=== PATIENT | female | born 1980 | race Caucasian/White ===

== ENCOUNTER 2024-06-30 05:29 | Inpatient (IN) ==
--- NOTE | 2024-06-20 11:55 | Anesthesiology Consultation ---
Date of Service June 20, 2024 Assessment & Plan (1) Encounter for pre-operative examination: Chart Review Chart Review: Acceptable Risk for Surgery and Patient NOT seen in Pre Admission Testing Consults Requested none History Surgery Operation Date: 06/30/24 07:30 Proposed Procedures p Section (Delivery of Baby through Abdominal Incision) - Jamilah Jama MD, FACOG Height/Weight Height: 5 ft 6 in Weight: 81.647 kg Allergies Allergy/AdvReac Type Severity Reaction Status Date / Time No Known Allergies Allergy Verified 06/19/24 15:06 Medications Home Medications Medication Instructions Recorded Confirmed Last Taken ascorbic acid (vitamin C) 500 mg 500 mg PO DAILY 09/24/23 06/19/24 Unknown capsule [id number] 1 tab PO DAILY 12/13/23 06/19/24 Unknown [] calcium 600 mg capsule 600 mg PO DAILY 06/19/24 06/19/24 Unknown magnesium 200 mg tablet 200 mg PO DAILY 06/19/24 06/19/24 Unknown Past Medical History Medical History Herpes hx-not at present Past Family History Family History Mother Rheumatoid arthritis Denies family history of Ovarian cancer Prostate cancer Breast cancer Colorectal cancer Past Surgical History Surgical History History of dilatation and curettage History of adenoidectomy S/P tonsillectomy Social History Smoking Status: Never smoker Do You Dip or Chew Tobacco: No Hx Alcohol Use: No Hx Substance Use: No substance use type: does not use Testing Laboratory Results Laboratory Tests 12/13/23 04/11/24 10:58 10:50 WBC 7.29 Hgb 12.6 12.0 Hct 35.7 L 34.3 L Plt Count 201
--- NOTE | 2024-06-29 10:19 | History & Physical Report ---
Date of Service June 29, 2024 Assessment & Plan (1) 39 weeks gestation of : (2) resulting from in vitro fertilization: (3) Pelvic floor dysfunction: (4) Elevated ALT measurement: Plan Patient will be admitted on 06/30 for planned elective c/s due to her history of pelvic floor dysfunction. Having elevated ALT and so will recheck labs in AM. She is aware of risks/benefits and complications from c/s and desires to proceed and consent signed. rh pos, ri, gbs neg. no concern for hsv outbreak. History of Present Illness Chief Complaint: planned elective c/s Primary Care Provider: NO PCP 44yo at 39 0/7 wks ega for planned elective section. Denies rom, vb. +FM. No ctx. Has had some increased swelling especially in hands and isolated ALT elevation with normal BP parameters. PNC c/b 1. IVF/ICSI 2. AMA, neg cvs. normal echo 3. HSV history, offered but declined valtrex due to med se 4. Pelvic Floor Dysfunction, desires elective c/s PNL rh pos, ri, gbs neg OBH: G1 GYNH: nl paps Allergies Allergy/AdvReac Type Severity Reaction Status Date / Time No Known Allergies Allergy Verified 06/29/24 09:47 Home Medications Medication Instructions Recorded Confirmed Type ascorbic acid (vitamin C) 500 mg 500 mg PO DAILY 09/24/23 06/29/24 History capsule calcium 600 mg capsule 600 mg PO DAILY 06/19/24 06/29/24 History magnesium 200 mg tablet 200 mg PO DAILY 06/19/24 06/29/24 History vitamin-ferrous sulfate 1 tab PO DAILY 06/27/24 06/29/24 History 27 mg iron-folic acid 0.8 mg tablet Patient History Medical History Herpes hx-not at present Surgical History History of dilatation and curettage History of adenoidectomy S/P tonsillectomy Family History Mother Rheumatoid arthritis Denies family history of Ovarian cancer Prostate cancer Breast cancer Colorectal cancer Social History (Updated 01/29/24 @ 10:18 by BALTA Peck Smoking Status: Never smoker Second Hand Exposure: No; Do You Dip or Chew Tobacco: No; Hx Alcohol Use: No Hx Substance Use: No Preferred Language: Swedish Communication Ability: Effective Visual Impairment: No Limitations Order Builder Required: No Beliefs That Will Affect Care: None marital status: marital status details: pat 39 Current Living Situation: Spouse Current Living Situation Comment: Patient lives with spouse and 2 dogs. current occupational status: employed current occupation: Self employed Feels Safe at Home: Yes Assistive Devices: Contacts and Glasses Review of Systems as per Subjective / HPI Physical Exam Constitutional: WD/WN, vitals as above Respiratory: normal respiratory effort, lungs clear to auscultation Cardiovascular: Rate/Rhythm: regular rate and regular rhythm Gastrointestinal (Abdomen): soft gravid nt Musculoskeletal: tr edema nontender calves Neurologic: grossly normal Psychiatric: A+Ox3, euthymic affect Coding Level of Care Code None Diagnoses 39 weeks gestation of Z3A.39 resulting from in vitro fertilization O09.819 Pelvic floor dysfunction M62.89 Elevated ALT measurement R74.01
[2024-06-30] MEDS: LACTATED RINGER'S 1,000 ML IV SCH ×3 (06:05→12:14)
[2024-06-30 06:26] LABS: Basophils # (auto) 0.03 K/uL (0.00-0.20); Basophils % (auto) 0.5 %; Eosinophils # (auto) 0.08 K/uL (0.00-0.50); Eosinophils % (auto) 1.3 %; Hematocrit (blood only) 35.2 % (37.0-47.0); Hemoglobin 12.5 g/dl (12.0-16.0); Immature Granulocytes # (auto) 0.03 K/uL (0.01-0.20); Immature Granulocytes % (auto) 0.5 %; Lymphocytes # (auto) 1.92 K/uL (1.20-3.40); Lymphocytes % (auto) 31.8 %; Mean Corpuscular Hemoglobin 31.3 pg (25.0-34.0); Mean Corpuscular Hgb Conc 35.5 g/dL (32.0-36.0); Mean Platelet Volume 11.3 fL (9.4-12.4); Monocytes # (auto) 0.67 K/uL (0.11-0.59); Monocytes % (auto) 11.1 %; Neutrophils # (auto) 3.31 K/uL (1.40-6.50); Neutrophils % (auto) 54.8 %; Platelet Count 147 K/uL (130-400); RDW Coefficient of Variation 12.7 % (11.5-14.5); RDW Standard Deviation 40.5 fL (36.4-46.3); White Blood Count 6.04 K/ul (4.8-10.8)
[2024-06-30] MEDS: ACETAMINOPHEN 500 MG TAB PO SCH (06:31)
[2024-06-30] MEDS ORDERED: PHENYLEPHRINE 100MCG/ML 10ML SYR IV ONE (06:52)
[2024-06-30] MEDS ORDERED: ONDANSETRON INJ 2 MG/ML 2 ML VIAL ONE (06:52)
[2024-06-30] MEDS ORDERED: DEXAMETHASONE SOD INJ 4 MG/ML VIAL ONE (06:52)
[2024-06-30] MEDS ORDERED: fentaNYL citrate PF 100 MCG/2 ML VIAL ONE (06:52)
[2024-06-30] MEDS ORDERED: OXYTOCIN 10 UNITS/ML VIAL ONE (06:52)
[2024-06-30] MEDS ORDERED: KETOROLAC 30 MG/ML VIAL ONE (06:52)
[2024-06-30] MEDS ORDERED: MoRPHine SULFATE PF 1 MG/ML 10 ML AMP/VIAL ONE (06:53)
[2024-06-30] MEDS: CITRIC ACID/SODIUM CITRATE 15 ML UDC PO SCH (07:04)
[2024-06-30] MEDS: ceFAZolin 2000MG 2,000 MG/15 ML SYR IV SCH (07:10)
--- NOTE | 2024-06-30 07:23 | History & Physical Bridge Note ---
Date of Service June 30, 2024 History & Physical Bridge Note I have examined the patient, reviewed the History & Physical and in the interval since the performance of the History & Physical I have noted the following changes of clinical significance: no changes noted
[2024-06-30] MEDS ORDERED: NALOXONE HCL 0.08 MG in SYRINGE 1.8 ML IV PRN (07:45)
[2024-06-30] MEDS ORDERED: ePHEDrine sulfate 50 MG/ML AMP IV PRN (07:45)
[2024-06-30] MEDS ORDERED: NALOXONE HCL 1 MG in SODIUM CHLORIDE 0.9% 1,000 ML IV PRN (07:45)
[2024-06-30] MEDS ORDERED: LACTATED RINGER'S 500 ML IV PRN (07:45)
[2024-06-30] MEDS ORDERED: diphenhydrAMINE 50 MG/ML VIAL IV PRN (07:45)
[2024-06-30] MEDS ORDERED: NALOXONE HCL 0.4 MG/1 ML VIAL/CARP IV PRN (07:45)
[2024-06-30] MEDS ORDERED: HYDROmorphone INJ 0.5 MG/0.5 ML SYR IV PRN (07:45)
[2024-06-30] MEDS ORDERED: DC INTRASPINAL MORPHINE SCH (07:45)
[2024-06-30] MEDS ORDERED: NO NARCOTICS OR SEDATIVES SCH (07:45)
[2024-06-30] MEDS ORDERED: NALBUPHINE HCL 5 MG in SYRINGE 0 ML IV PRN (07:45)
[2024-06-30] MEDS ORDERED: KETOROLAC 30 MG/ML VIAL IV PRN (07:45)
--- NOTE | 2024-06-30 08:29 | Operative Report ---
Post Operative Report Pre & Post Diagnosis Operation Date: 06/30/24 07:30 Pre-Op Diagnosis: 1. Term , 39 wks 2. Desires elective primary c/section 3. Pelvic Floor Dysfunction 4. AMA 5. IVF Post-Op Diagnosis: Same I identified the patient and participated in the time-out.: Yes Procedure Operation Date: 06/30/24 07:30 Actual Procedures p Primary Low Transverse Section (Delivery of Baby through Abdominal Incision) with the of a live male child at 0757. - Jamilah Jama MD, FACOG Surgeon Jamilah Jama MD, FACOG Information Technology Administrator [employer] Quantitative Blood Loss (QBL) 241 Findings Consistent with Post-Op Diagnosis (viable male apgars 9,9, normal uterus, tubes and ovaries bilaterally. ) Fluids 1000cc Specimens cord blood Drains lane Anesthesia Type Spinal Complications none Disposition Accompanied Patient To Recovery: No Disposition: L&D Indications 44yo at 39 wks ega for planned elective c/s for history of pelvic floor dysfunction. Description of Procedure The patient was taken to the operating room and identified. After adequate anesthesia was obtained, she was placed in the supine position with a leftward tilt on the operating table and prepped and draped in the usual sterile fashion. A lane catheter had already been placed. The knife was used to create a Pfannensteil skin incision that was carried down to the underlying layer of fascia. The fascia was nicked in the midline and this opening was extended laterally using Valera scissors. Teresa clamps were placed on the superior and inferior aspect of the fascial incision tenting it upward and the underlying rectus muscles were dissected off the overlying fascia both sharply and bluntly using Valera scissors. The rectus muscles were bluntly in the midline. The peritoneal cavity was bluntly entered into. This opening was stretched. The bladder blade was placed. The vesicouterine peritoneum was elevated and opened up into and the bladder flap was created digitally and bladder blade was replaced. The knife was used to create a hysterotomy and this opening was stretched. The operators hand was placed through the hysterotomy and the bladder blade was removed. The head was elevated and flexed and with fundal pressure the head was delivered. The shoulders and body were rapidly delivered. The cord was clamped and cut and the 's mouth and nares were bulb suction. The infant was handed off to the awaiting pediatricians. Cord blood was obtained. The placenta was manually expressed. The uterus was exteriorized and cleared of all clots and debris. Dilute IV Pitocin was begun. The uterine tone was improving. The hysterotomy was closed in a running interlocking fashion using 0 Vicryl followed by a second imbricating layer of 0 Vicryl. The hysterotomy was hemostatic. The pelvis was suctioned. The uterus was returned to the abdomen and a bleeding site was noted at the midpoint of hysterotomy. A 2-0 vicryl figure of eight suture was placed for excellent hemostasis. The gutters were cleared of all clots and debris. The hysterotomy was reinspected and noted to be hemostatic. The fascia was then closed in running fashion using 0 Vicryl. The subcutaneous fat was copiously irrigated and reapproximated using 2-0 chromic. The skin was closed in a subcuticular fashion using 4-0 monocryl. At this point the procedure was terminated. The patient was transferred to the recovery room in stable condition. All sponge, lap and needle counts are correct x2. I attest to the content of the Intraoperative Record and any orders documented therein. Any exceptions are noted below. OB Procedure Charges 21235
--- NOTE | 2024-06-30 08:40 | Anesthesiology Progress Note ---
Date of Service June 30, 2024 Anesthesia Post Procedure Vital Signs Vital Signs: Temp Pulse Resp BP Pulse Ox 06/30/24 08:34 66 100 06/30/24 08:33 56 L 118/57 L 06/30/24 05:37 18 06/30/24 05:37 36.7 C 18 Transfer of Care Handoff Completed per policy Notes Mental Status: alert / awake / arousable and participated in evaluation Patient Amnestic to Procedure: No Nausea / Vomiting: adequately controlled Pain: adequately controlled Airway Patency, RR, SpO2: stable & adequate BP & HR: stable & adequate Hydration State: stable & adequate Neuraxial Anesthesia: was administered and sensory block is resolving Anesthetic Complications: no major complications apparent and Pt Satisfied with anesthetic care
[2024-06-30] MEDS ORDERED: HYDROCORTISONE ACETATE 25 MG SUPP PR PRN (09:36)
[2024-06-30] MEDS ORDERED: CALCIUM CARBONATE 500 MG CHEWABLE TAB PO PRN (09:36)
[2024-06-30] MEDS ORDERED: BENZOCAINE 20% SPRY 85 APPLN/85 GM CAN EXT PRN (09:36)
[2024-06-30] MEDS: OXYTOCIN 20 UNITS/LR 1,002 ML IV SCH (10:30)
[2024-06-30] MEDS ORDERED: Nursing to Pharmacy Communication SCH (10:45)
[2024-06-30] MEDS: DIPHTHER/TETAN/PERTUS Vaccine (Tdap, Adol/Adult) 0.5mL IM ONE (10:48)
[2024-06-30] MEDS: MAGNESIUM OXIDE 400 MG TAB PO SCH (12:12)
[2024-06-30] MEDS: ASCORBIC ACID 500 MG TAB PO SCH (12:12)
[2024-06-30] MEDS: CALCIUM CARBONATE 1250MG TAB PO SCH (12:12)
[2024-06-30] MEDS: MoRPHine SULFATE PF 1 MG/ML 10 ML AMP/VIAL INT SPINAL ONE (12:13)
[2024-06-30] MEDS: SODIUM CHLORIDE 0.9% 1,000 ML IV SCH (12:14)
[2024-06-30] MEDS: IBUPROFEN 600 MG TAB PO SCH (14:09)
[2024-06-30] MEDS: ACETAMINOPHEN 325 MG TAB PO SCH (14:09)
[2024-06-30] MEDS: SIMETHICONE 80 MG CHEW PO SCH (14:12)
[2024-06-30] MEDS: ONDANSETRON INJ 2 MG/ML 2 ML VIAL IV PRN (20:05)
[2024-06-30] MEDS: DOCUSATE SODIUM 100 MG CAP PO SCH (20:06)
[2024-06-30] MEDS: PROMETHAZINE 6.25 MG/50.25 ML BAG IV PRN (21:36)
[2024-07-01] MEDS ORDERED: oxyCODONE HCL IR 5 MG TAB (IMMEDIATE RELEASE) PO PRN (01:46)
[2024-07-01] MEDS ORDERED: HYDROmorphone INJ 0.5 MG/0.5 ML SYR IV PRN (01:46)
[2024-07-01] MEDS ORDERED: diphenhydrAMINE 50 MG/ML VIAL IV PRN (01:46)
[2024-07-01] MEDS ORDERED: ONDANSETRON INJ 2 MG/ML 2 ML VIAL IV PRN (01:46)
[2024-07-01] MEDS ORDERED: PROMETHAZINE 12.5 MG/50.5 ML BAG IV PRN (01:46)
[2024-07-01] MEDS ORDERED: diphenhydrAMINE Capsule 25 MG CAP PO PRN (01:46)
[2024-07-01 06:50] LABS: Basophils # (auto) 0.02 K/uL (0.00-0.20); Basophils % (auto) 0.2 %; Eosinophils # (auto) 0.09 K/uL (0.00-0.50); Eosinophils % (auto) 0.8 %; Hematocrit (blood only) 31.8 % (37.0-47.0); Hemoglobin 11.3 g/dl (12.0-16.0); Immature Granulocytes # (auto) 0.06 K/uL (0.01-0.20); Immature Granulocytes % (auto) 0.5 %; Lymphocytes # (auto) 2.25 K/uL (1.20-3.40); Lymphocytes % (auto) 19.1 %; Mean Corpuscular Hemoglobin 31.7 pg (25.0-34.0); Mean Corpuscular Hgb Conc 35.5 g/dL (32.0-36.0); Mean Corpuscular Volume 89.3 fL (80.0-100.0); Mean Platelet Volume 11.4 fL (9.4-12.4); Monocytes % (auto) 8.5 %; Neutrophils # (auto) 8.38 K/uL (1.40-6.50); Neutrophils % (auto) 70.9 %; Platelet Count 136 K/uL (130-400); RDW Coefficient of Variation 12.7 % (11.5-14.5); RDW Standard Deviation 41.6 fL (36.4-46.3); Red Blood Count 3.56 M/uL (4.20-5.40)
[2024-07-01 07:15] LABS: Albumin Level 3.1 gm/dl (3.4-5.0); Bilirubin Direct 0.1 mg/dl (0-0.2); Bilirubin,Total 0.5 mg/dl (0.2-1.0); Total Protein 5.4 gm/dl (6.0-8.3)
--- NOTE | 2024-07-01 07:22 | Obstetrical Progress Note ---
Date of Service July 01, 2024 Assessment & Plan (1) delivery delivered: -1st POD S/P for PFD/ AMA/ ISCI at term - Overall doing fine. Vitals stable. - Improved nausea, vomiting. - Bandage removed; Wound intact and healthy. - Continue observation today, will discharge her tomorrow. Subjective Patient is a 44 yo female is POD #1 following delivery at 39 weeks. She reports feeling well overall this morning. She reports her pain is well managed on analgesics; She has NV yestreday evening; doing fine now after medicine change. Voiding urine. Tolerating regular meals overnight and able to ambulate some. She has passed gas but no stool. Persistent lochia with some improvement this morning. Currently breast feeding. Review of Systems Denies fever, chills, sweats. Denies SOB, difficulty breathing, chest pain, palpitations, and chest pressure. Denies breast pain. Denies dysuria. Denies headache or changes in vision. Physical Exam General: Alert and oriented. No acute distress. CV: Regular rate and rhythm. No murmurs. Respiratory: CTA bilaterally. No rhonchi, wheezes, or crackles. No increased work of breathing. Abdomen: Positive bowel sounds. Soft, nontender, and nondistended. Uterus: Fundus firm and palpable few cm below umbilicus. Surgical scar clean and healing well. Lower extremities: No LE edema. No deep calf pain. Results & Data Vital Signs (Past 12 Hours) Vital Signs Temp Pulse Resp BP Pulse Ox O2 Del Method 07/01/24 02:40 36.9 C 61 16 104/61 97 Room Air 07/01/24 01:00 99 07/01/24 00:00 98 06/30/24 23:40 37.3 C 88 18 111/81 97 Room Air 06/30/24 23:00 100 06/30/24 22:33 98 06/30/24 21:00 99 06/30/24 20:15 36.6 C 66 20 110/71 98 Room Air 06/30/24 20:00 98 06/30/24 19:32 98
[2024-07-01] MEDS: PRENATAL VITAMIN 1 TAB PO SCH (08:06)
[2024-07-01] MEDS: FERROUS SULFATE 325 MG TAB PO SCH (08:06)
[2024-07-01] MEDS: SENNA 8.6 MG TAB PO PRN (11:06)
[2024-07-01] MEDS: MAGNESIUM HYDROXIDE SUSP 30 ML UDC PO PRN (11:06)
[2024-07-01] MEDS ORDERED: Nursing to Pharmacy Communication SCH (15:15)
[2024-07-01] MEDS ORDERED: bisacodyL 10 MG SUPP PR PRN (15:21)
[2024-07-01] MEDS: bisacodyL 10 MG SUPP PR PRN (15:25)
[2024-07-01] MEDS: bisacodyL 5 MG TABEC PO SCH (16:22)
[2024-07-01] MEDS ORDERED: bisacodyL 5 MG TABEC PO SCH (20:00)
[2024-07-02 06:28] LABS: Hematocrit (blood only) 32.9 % (37.0-47.0); Hemoglobin 11.6 g/dl (12.0-16.0)
[2024-07-02 06:45] LABS: Albumin Level 3.1 gm/dl (3.4-5.0); Bilirubin,Total 0.3 mg/dl (0.2-1.0); Total Protein 5.3 gm/dl (6.0-8.3)
--- NOTE | 2024-07-02 06:51 | Obstetrical Progress Note ---
Date of Service July 02, 2024 Assessment & Plan (1) Encounter for care and examination after delivery: (2) Elevated ALT measurement: (3) S/P primary low transverse : Plan stable, doing well postop. will dc home as they desire such. not using any oxycodone but will send small amt to pharm #5, checked on papdmp and no issues. reviewed instructions, f/u 6 wks pp check. elevated transaminases are stable, will check pp. bottle, rhpos, ri Day #:: 2 Subjective Ambulation: ambulating normally Voiding: no voiding problems Diet Tolerance:: regular diet Lochia:: Small Feeding Type:: bottle feeding no pain concerns. does still have swelling, a little worse than before. no n/v, cp or sob. had history of elevated transaminases, ? cause. nl bp Constitutional: + as per Subjective / HPI Physical Exam Constitutional WD/WN, vitals as above Respiratory normal respiratory effort, lungs clear to auscultation Cardiovascular Rate/Rhythm: regular rate and regular rhythm Gastrointestinal (Abdomen) Inspection/Auscultation: abdomen normal to inspection and + abdominal surgical incision (c/d/i with bruising. ) Percussion/Palpation: abdomen soft Fundus firm 2cm down Musculoskeletal nt calves +1 edema pedal. Neurologic grossly normal Psychiatric A+Ox3, euthymic affect Results & Data Vital Signs (Past 12 Hours) Vital Signs Temp Pulse Resp BP Pulse Ox O2 Del Method 07/01/24 23:40 98.2 F 67 18 117/73 99 Room Air 07/01/24 20:30 98.1 F 63 16 106/68 98 Room Air
[2024-07-02] MEDS ORDERED: IBUPROFEN 600 MG TAB PO PRN (08:42)
[2024-07-02] MEDS ORDERED: ACETAMINOPHEN 325 MG TAB PO PRN (08:42)
[2024-07-02 09:40] VITALS: PULSE 75; RESP 16; TEMP 97.9; O2SAT 100
[2024-07-02 09:51] VITALS: BP 104/61
== END 2024-07-02 13:01 | disposition home or self-care (01) | DRG 788 ==
LOC: 4S1 05:29 → EDSTATUS 07:30 → 4E2 11:41